=== PATIENT | female | born 1995 | race Caucasian/White ===

== ENCOUNTER 2017-07-13 06:59 | Emergency (ER) | payer MEDICAID, SELFPAY ==
[2017-07-13 07:01] VITALS: BP 144/79; PULSE 122; RESP 18; TEMP 36.9; O2SAT 96; BMI 35.6
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
== END 2017-07-13 07:42 | disposition home or self-care (01) ==
PROVIDERS: Emergency Provider Emergency Medicine; Family Provider Internal Medicine; PCP Internal Medicine
DX: S00.83XA Contusion of other part of head, initial encounter (principal); Y04.2XXA Assault by strike against or bumped into by another person, initial encounter; Y93.89 Activity, other specified; Y92.9 Unspecified place or not applicable
CPT/HCPCS: 99284

== ENCOUNTER → 2017-07-25 14:57 | Outpatient (CLI) | payer MEDICAID, SELFPAY ==
[2017-07-25 21:06] LABS: Chlamydia Trachomatis by PCR Negative (Negative); Neisserai gonorrhoeae by PCR Negative (Negative); Probe Check PASS; Sample Adequacy Control PASS; Specimen Processing Control PASS
== END ==
PROVIDERS: Family Provider Internal Medicine; PCP Internal Medicine; Visit Provider Obstetrics & Gynecology
DX: Z11.3 Encounter for screening for infections with a predominantly sexual mode of transmission (principal); Z32.01 Encounter for pregnancy test, result positive
CPT/HCPCS: 87491; 87591

== ENCOUNTER 2017-08-26 05:54 | Day surgery (SDC) | payer MEDICAID, SELFPAY ==
[2017-08-26] VITALS (8 sets, daily range): BP systolic 95–109; BP diastolic 52–73; PULSE 57–94; RESP 12–16; TEMP 36.2–36.5; O2SAT 95–100; BMI 34.0
[2017-08-26 06:46] LABS: Hematocrit 37.4 % (37-47); Hemoglobin 12.6 g/dl (12.0-15.0); Mean Corp Hgb Conc 33.7 g/gl (32-36); Mean Corpuscular Hgb 27.9 pg (27.0-32.0); Mean Corpuscular Volume 82.7 fL (81-99); Mean Platelet Vol. 9.8 fl (6.2-12.0); Platelet Count 202 K/mm3 (150-450); RBC Distribution Width CV 13.5 % (11.6-14.6); RBC Distribution Width SD 39.8 fl (35.1-43.9); Red Blood Count 4.52 M/mm3 (4.2-5.4); White Blood Count 12.4 K/mm3 (4.4-11.0)
[2017-08-26 06:48] LABS: Scan Indicated on CBC? Y/N NO
[2017-08-26 06:52] LABS: International Normalized Ratio 1.1; Partial Thromboplast Time 32.1 Seconds (24.1-36.2); Prothrombin Time (Protime)PT. 13.9 SECONDS (11.7-14.9)
--- NOTE | 2017-08-26 07:30 | POC_PTH ---
PATIENT: SEAN RUSSELL [place] [facility] [id number] AGE/SX: 21/F ROOM: RE08/26/[address]: Dr. Noe Graves MD : 1995 BED: DIS: 08/26/2017 SPEC #: [id number] RECD: 08/26/17 08:25 STATUS: TOMASZ NIDIA #: [id number] RICKY: 08/26/17 07:[address]: Noe Graves DEPT: SURGICAL PATHOLOGY RECD BY: Tamiko Johnson ENTERED: 08/26/17 09:16 SP TYPE: PROD CONC OTHR DR: Dr. Odette Mendieta MD Tissues: Product of conception, NOS Procedures: Surgery Specimen Level IV HEADER OPERATION: dilation and curettage, suction PRE-OP DIAGNOSIS: Missed TISSUE SUBMITTED: Products of conception MICROSCOPIC DIAGNOSIS Products of conception: Decidua, gestational endometrium and immature chorionic villi (products of conception). SJ:shani 08/27/17 MICROSCOPIC DESCRIPTION Slides are reviewed. GROSS DESCRIPTION Received in fixative is one container labeled with the patient's name and designated products of conception. The specimen consists of multiple fragments of pink hemorrhagic soft tissue that in aggregate measure 6 x 5.5 x 2.5 cm. tissue is not identified. Medical Accounts Receivable Specialist tissue is submitted in two cassettes. / SJ:shani 08/26/17 TC:5 CPT: 06457
[2017-08-26] MEDS: Lubricating Jelly 60 GM Tube 30 GM TOPICAL (07:41)
--- NOTE | 2017-08-26 07:49 | PCM.DC ---
- Discharge Diagnoses Current Active Problems: missed You will use the following diet at home:: No restrictions, Regular Your food should be the consistency of: Regular Discharge Activity: Return to Normal Activity, No Restrictions, May Drive, May not drive while taking narcotic pain medications., May Shower Return to work on:: 09/02/17 May resume sexual activity in: 3 weeks Call your doctor if your incision/area has: Sudden Increased Bleeding, Increased Pain/ Swelling, Increased Redness, Foul Smelling Discharge Call your doctor if you observe: Fever of 101 or Higher, Inability to urinate, Inability to have a bowel movement, Using more than one pad per hour, Shortness of breath, Chest pain, Calf discomfort, Uncontrolled pain Cleanse incision/area with: Soap & Water Allergies/Adverse Reactions: Allergies No Known Allergies Allergy (Verified 08/22/17 10:44) Medications to take at Discharge Ibuprofen [Motrin] 800 mg PO TID PRN PRN #30 tab 08/26/17 Oxycodone [Oxyir] 5 mg PO Q4H PRN PRN 7 Days #14 tab 08/26/17 The following prescriptions were given: Oxycodone [Oxyir] 5 mg PO Q4H PRN PRN 7 Days #14 tab PRN Reason: Severe Pain (6-10/10) Ibuprofen [Motrin] 800 mg PO TID PRN PRN #30 tab PRN Reason: pain or cramping Primary Care Physician: Odette Mendieta MD [Primary Care Provider] - Please Follow Up With: Noe Graves MD When: one week Proposed Discharge Date: 08/26/17
--- NOTE | 2017-08-26 07:54 | OP.PCM_ITS ---
Problem List (1) Missed with demise before 20 completed weeks of gestation Status: Chronic Report of Operation Date of Procedure: 08/26/17 Pre-Operative Diagnosis: Missed Post-Operative Diagnosis: Same Surgery/Procedure Performed:: Suction D and C Description of Surgical Findings:: Uterus 7 weeks size. No cervical lesions. Products of conception appropriate for US findings. cashier self service gasoline: None Type of Anesthesia:: MAC Anesthesiologist: Marcos Mane Special Medications: none Specimen's removed: products of conception Drains: none Estimated Blood Loss (mL): 10cc Fluids Replaced: 500cc LR Description of Procedure: Carola had a missed at approximately 7 weeks EGA. She did not have any bleeding prior to presentation today. She was taken to the OR with IV running. She was given 2 grams of cefotetan intravenously for surgical prophylaxis. MAC anesthesia was introduced without complication. She was then prepped and draped in the dorsal lithotomy position. A red rubber catheter was used to drain the bladder. A weighted speculum was placed in the posterior vagina. The cervix was identified and the anterior lip grasped with a single toothed tenaculum. The cervix was then serially dilated to 8mm without difficulty. A #8 suction curette was then placed into the endometrial cavity, suction applied and products of conception obtained. A sharp curettage was then performed to a gritty texture throughout. The suction curette was reintroduced, suction applied, and the remaining products of conception obtained. All instruments were then removed from the vagina. Bleeding was minimal. She was reversed from anesthesia and taken to the recovery room in stable condition. - Complications none - Admit VTE Documentation VTE Present on Admission: No VTE Mechan Device Prophylaxis: SCD's VTE Pharm Prophylaxis ordered?: No
== END 2017-08-26 09:06 | disposition home or self-care (01) ==
LOC: SDC 05:54 → AC 05:56
PROVIDERS: Family Provider Internal Medicine; PCP Internal Medicine; Visit Provider Obstetrics & Gynecology
PROC: (CPT 59812; principal; 2017-08-26 07:15)
DX: O03.4 Incomplete spontaneous abortion without complication (principal); Z87.891 Personal history of nicotine dependence
CPT/HCPCS: 01965; 59812; 85027; 85610; 85730; 86850; 86900; 88305; J3010; J7120; J2405

== ENCOUNTER → 2017-11-26 14:01 | Outpatient (CLI) | payer MEDICAID, SELFPAY ==
[2017-11-26 18:02] LABS: Chlamydia Trachomatis by PCR Negative (Negative); Neisserai gonorrhoeae by PCR Negative (Negative); Probe Check PASS; Sample Adequacy Control PASS; Specimen Processing Control PASS
[2017-12-03 15:04] LABS: HPV Reflexed? NOT INDICATED
== END ==
PROVIDERS: Visit Provider Obstetrics & Gynecology
DX: Z12.4 Encounter for screening for malignant neoplasm of cervix (principal); Z11.3 Encounter for screening for infections with a predominantly sexual mode of transmission
CPT/HCPCS: 87491; 87591; 88175; G0145

== ENCOUNTER → 2017-12-25 13:56 | Outpatient (CLI) | payer MEDICAID, SELFPAY ==
[2017-12-25 15:45] LABS: Absolute Lymphocyte Count 2.12 X10^3/ul (0.83-4.51); Absolute Neutrophil Count 6.9 X10^3/uL (2.0-7.7); Basophil# 0.01 X10^3/uL; Basophil% 0.1 % (0-1); Eosinophil# 0.24 X10^3/uL; Eosinophils% 2.5 % (0-5); Hematocrit 38.9 % (37-47); Hemoglobin 12.8 g/dl (12.0-15.0); Lymphocyte # 2.12 X10^3/ul (4.0); Lymphocyte % 21.7 % (19-41); Mean Corp Hgb Conc 32.9 g/gl (32-36); Mean Corpuscular Hgb 27.2 pg (27.0-32.0); Mean Corpuscular Volume 82.6 fL (81-99); Monocyte# 0.49 X10^3/uL; Neutrophil # 6.88 X10^3/uL (2.7-7.7); Neutrophil % 70.6 % (47-70); Platelet Count 170 K/mm3 (150-450); RBC Distribution Width CV 14.6 % (11.6-14.6); Red Blood Count 4.71 M/mm3 (4.2-5.4); White Blood Count 9.8 K/mm3 (4.4-11.0)
[2017-12-25 15:46] LABS: POSITIVE COUNT NO; POSITIVE DIFFERENTIAL NO; POSITIVE MORPHOLOGY NO
[2017-12-25 15:49] LABS: Color, Urine Straw (Yellow); Glucose, Dipstick Normal (Normal); Ketone-Dipstick Negative (Negative); Leukocyte Esterase-Dipstick 25 /ul (Negative); Nitrite-Dipstick Negative (Negative); Occult Blood-Urine 10 /ul (Negative); Protein-Dipstick Negative (Negative); Specific Gravity, Urine 1.015 (1.002-1.030); Urine Bilirubin Dipstick Negative (Negative); Urine Clarity Sl. Cloudy (Clear); Urine Urobilinogen 1 mg/dl (Normal)
[2017-12-25 16:05] LABS: Thyroid Stim Hormone (TSH) 0.88 uIU/mL (0.358-3.74)
[2017-12-25 16:13] LABS: COTININE Drug Screen Positive (<200 ng/mL)
[2017-12-25 16:47] LABS: HIV - WCH Non-Reactive (Nonreactive); Rubella IgG 73.4 IU/mL
[2017-12-25 17:39] LABS: Amphetamine Urine VISTA NEGATIVE (<1000 ng/mL); Barbiturate Urine VISTA NEGATIVE (< 200 ng/mL); Benzodiazepine Urine VISTA NEGATIVE (< 200 ng/mL); Cocaine Urine VISTA NEGATIVE (< 300 ng/mL); Ecstacy Urine VISTA NEGATIVE (< 500 ng/mL); Methadone Urine VISTA NEGATIVE (< 300 ng/mL); PCP Urine VISTA NEGATIVE (< 25 ng/mL); THC Urine VISTA NEGATIVE (< 50 ng/mL); Vista UDS pH Range 7
[2017-12-27 02:41] LABS: Prenatal RPR NONREACTIVE (NONREACTIVE)
[2017-12-27 14:10] LABS: HEPATITIS B SURFACE AG Negative (Negative); Hep C Antibodies <0.1 s/co ratio (0.0-0.9)
== END ==
PROVIDERS: Visit Provider Obstetrics & Gynecology
DX: Z34.81 Encounter for supervision of other normal pregnancy, first trimester (principal)
CPT/HCPCS: 36415; 80307; 81002; 84443; 85025; 86703; 86762; 86803; 87340

== ENCOUNTER → 2018-04-16 13:45 | Outpatient (CLI) | payer MEDICAID, SELFPAY ==
[2018-04-16 15:52] LABS: Glucose Challenge Gest 1H 50g 121 mg/dL (70-140)
[2018-04-16 15:56] LABS: Hematocrit 31.8 % (37-47); Hemoglobin 10.5 g/dl (12.0-15.0); Mean Corpuscular Hgb 27.6 pg (27.0-32.0); Mean Corpuscular Volume 83.7 fL (81-99); Mean Platelet Vol. 9.2 fl (6.2-12.0); Platelet Count 187 K/mm3 (150-450); RBC Distribution Width CV 13.8 % (11.6-14.6); RBC Distribution Width SD 41.9 fl (35.1-43.9); White Blood Count 12.2 K/mm3 (4.4-11.0)
[2018-04-16 15:57] LABS: Scan Indicated on CBC? Y/N NO
== END ==
PROVIDERS: Visit Provider Obstetrics & Gynecology
DX: Z34.83 Encounter for supervision of other normal pregnancy, third trimester (principal)
CPT/HCPCS: 36415; 82950; 85027

== ENCOUNTER 2018-05-18 18:25 | Outpatient (CLI) | payer MEDICAID, SELFPAY ==
[2017-08-26 06:33] VITALS: BMI 34.0
[2018-05-18 18:47] VITALS: BMI 37.1
[2018-05-18 19:26] LABS: Mucous, Urine 0 SEEN /hpf (<or=2+); Red Blood Cells-Urine 0 SEEN /hpf (0-5)
[2018-05-18 19:51] LABS: Color, Urine Yellow (Yellow); Glucose, Dipstick Normal (Normal); Ketone-Dipstick Negative (Negative); Leukocyte Esterase-Dipstick 25 /ul (Negative); Nitrite-Dipstick Negative (Negative); Occult Blood-Urine Negative /ul (Negative); Protein-Dipstick Negative (Negative); Urine Bilirubin Dipstick Negative (Negative); Urine Clarity Sl. Cloudy (Clear); Urine Urobilinogen 1 mg/dl (Normal)
[2018-05-18 20:05] LABS: Amorphous Sediment 1+; Bacteria RARE /hpf (None Seen); Squamous Epithelial Cells - UA 0-5 SEEN /hpf (5-10); White Blood Cells 0-5 SEEN /hpf (0-5)
--- NOTE | 2018-05-20 22:42 | OB.TRI.NOTE ---
History of Present Illness Date of Service: 05/18/18 Was patient seen by the physician?: No Reason For Visit: BACK PAIN AND LOWER PRESSURE Date of Service: 05/18/18 Final CHRISTIAN: 07/04/18 Final CHRISTIAN Source: US <20 weeks Gestational age: 33 Weeks and 2 Days History of Present Illness: 22 yo [id number] female at 33 2/7 wk presents with CC of pelvic pain, low back pain. urinary frequency for evaluation. Allergies No Known Allergies Allergy (Verified 08/22/17 10:44) Laboratory Studies: Laboratory Tests 05/18/18 Range/Units 19:00 Urine Color Yellow (Yellow) Urine Clarity Sl. Cloudy (Clear) Urine pH 7.0 (5.0 - 8.0) Ur Specific [place] 1.020 (1.002-1.030) Urine Protein Negative (Negative) mg/dl Urine Glucose (UA) Normal (Normal) mg/dl Urine Ketones Negative (Negative) mg/dl Urine Occult Blood Negative (Negative) /ul Urine Nitrite Negative (Negative) Urine Bilirubin Negative (Negative) mg/dL Urine Urobilinogen 1 H (Normal) mg/dl Ur Leukocyte Esterase 25 H (Negative) /ul Urine RBC 0 SEEN (0-5) /hpf Urine WBC 0-5 SEEN (0-5) /hpf Ur Squamous Epith Cells 0-5 SEEN (5-10) /hpf Amorphous Sediment 1+ Urine Bacteria RARE (None Seen) /hpf Urine Mucus 0 SEEN (<or=2+) /hpf Physical Exam Vitals: UA: Rare bacteria. Sp Gr 1.020 NST - FHR Rate Baby A Baseline: 130-140s avg variability. Accels. Variables. Variability:: Moderate Accelerations:: 10 x 10 Decelerations:: Variable NST Reactive:: Yes, Appropriate for gestational age FHR Category:: Category I Uterine Activity:: Irritability, no regular UCs. Impression/Plan 33 2/7 wk EGA [id number] female. False labor, musculoskeletal pain UA neg for UTI (rare bacteria) Home Tylenol, inc po fluids. Rest, maternity support band prn Benadryl prn to help with rest at night Keep next ofc appt as scheduled.
--- NOTE | 2018-05-20 22:46 | OB.TRI.HP_ITS ---
History of Present Illness Date of Service: 05/18/18 Was patient seen by the physician?: No Reason For Visit: BACK PAIN AND LOWER PRESSURE Date of Service: 05/18/18 Final CHRISTIAN: 07/04/18 Final CHRISTIAN Source: US <20 weeks Gestational age: 33 Weeks and 2 Days History of Present Illness: 22 yo [id number] female at 33 2/7 wk presents with CC of pelvic pain, low back pain. urinary frequency for evaluation. Allergies No Known Allergies Allergy (Verified 08/22/17 10:44) Laboratory Studies: Laboratory Tests 05/18/18 Range/Units 19:00 Urine Color Yellow (Yellow) Urine Clarity Sl. Cloudy (Clear) Urine pH 7.0 (5.0 - 8.0) Ur Specific [place] 1.020 (1.002-1.030) Urine Protein Negative (Negative) mg/dl Urine Glucose (UA) Normal (Normal) mg/dl Urine Ketones Negative (Negative) mg/dl Urine Occult Blood Negative (Negative) /ul Urine Nitrite Negative (Negative) Urine Bilirubin Negative (Negative) mg/dL Urine Urobilinogen 1 H (Normal) mg/dl Ur Leukocyte Esterase 25 H (Negative) /ul Urine RBC 0 SEEN (0-5) /hpf Urine WBC 0-5 SEEN (0-5) /hpf Ur Squamous Epith Cells 0-5 SEEN (5-10) /hpf Amorphous Sediment 1+ Urine Bacteria RARE (None Seen) /hpf Urine Mucus 0 SEEN (<or=2+) /hpf Physical Exam Vitals: UA: Rare bacteria. Sp Gr 1.020 NST - FHR Rate Baby A Baseline: 130-140s avg variability. Accels. Variables. Variability:: Moderate Accelerations:: 10 x 10 Decelerations:: Variable NST Reactive:: Yes, Appropriate for gestational age FHR Category:: Category I Uterine Activity:: Irritability, no regular UCs. Impression/Plan 33 2/7 wk EGA [id number] female. False labor, musculoskeletal pain UA neg for UTI (rare bacteria) Home Tylenol, inc po fluids. Rest, maternity support band prn Benadryl prn to help with rest at night Keep next ofc appt as scheduled.
--- OUTSIDE RECORDS SUMMARY | 2018-07-12 00:46 | XMS RPT_ITS ---
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 shortness of breath, bleeding, nausea or vomiting, chest pain, or any unexpected problems, contact your Primary Care Provider. Call [facility] ([phone]) or report to the closest Emergency Room. Call 911 if necessary. 07/13/17721 <Electronically signed by Joaquin Maldonado DO> Date Joaquin Maldonado DO [place] Signature (If Indicated): Date CC: Odette Mendieta MD ALLERGIES ALLERGIES DATE TYPE / CODE NAME / CODE REACTION SEVERITY SOURCE 08/22/2017 Drug No Known Unknown [facility] Allergy/4160 Allergies/F00 Hospital 12320(SNOMED [id number](RXNOR Repository CT) M) ENCOUNTERS ENCOUNTERS ADMIT/DISCHARGE ACCOUNT ADMITTING ENCOUNTER LOCATION SOURCE NUMBER CLASS 05/18/2018/12/02 [id number] Ambulatory Olmitz Olmitz 8 9 [facility] ing:WPOUTRoom Repository : WP015 04/16/2018 [id number] Ambulatory Debbie Olmitz 0 [facility] ing:WOBLAB Repository 12/25/2017 [id number] Ambulatory Debbie Olmitz 4 [facility] ing:WOBLAB Repository 11/26/2017 [id number] Ambulatory Olmitz Debbie 8 [facility] ing:LABSPEC Repository 08/26/2017/ [id number] Ambulatory Olmitz Olmitz 8 6 [facility] ing:SDC Repository 07/25/2017 [id number] Ambulatory Debbie Debbie 7 [facility] ing:LABSPEC Repository 07/13/2017/ [id number] Emergency Olmitz Debbie 8 4 [facility] ing:ED Repository PAYERS PAYERS ENCOUNTER GUARANTOR PAYER SUBSCRIBER SOURCE 05/18/2018 CAROLA Bautista Primary CAROLA N Olmitz [id number] ERNIE Insurance:CARESOURCEP LAMBDOB: [facility] Number: [id number] [id number] Repository [address]Dle: (330) Date:2018-05-18P O [phone] () [address]ATTN: [place] [address]JG: 05/18/2018 Secondary NOT GIVENUNK Debbie Insurance:SELF PAY [facility] Number: Effective Repository Date:2018-05-18 04/16/2018 Carola Michele Primary Carola N Debbie [id number] Ernie Insurance:CARESOURCEP LambDOB: [facility] Number: [id number] [id number] Repository [address]Asl: (330) Date:2018-04-16 O [phone] () [address]ATTN: [place] [address]JF: 04/16/2018 Secondary NOT GIVENUNK Olmitz Insurance:SELF PAY [facility] Number: Effective Repository Date:2018-04-16 12/25/2017 Carola N Primary Carola N Olmitz [id number] Ernie Insurance:CARESOURCEP [facility]DOB[facility] Number: [id number] [id number] Repository [address]Kyy: (330) Date:2017-12-25P O [phone] () [address]ATTN: [place] [address]HQ: 12/25/2017 Secondary NOT GIVENUNK Olmitz Insurance:SELF PAY [facility] Number: Effective Repository Date:2017-12-25 11/26/2017 Carola N Primary Carola N Debbie [id number] Ernie Insurance:CARESOURCEP LambDOB: [facility] Number: [id number] [id number] Repository [address]Bqk: ([phone]) Date:2017-11-26 O [phone] () [address]ATTN: [place] [address]KC: 11/26/2017 Secondary NOT GIVENUNK Debbie Insurance:SELF PAY [facility] Number: Effective Repository Date:2017-11-26 08/26/2017 Carola N Primary Carola N Olmitz [id number] Ernie Insurance:CARESOURCEP LambDOB: [facility] Number: [id number] [id number] Repository [address]Cmp: ([phone]) Date:2017-08-22P O [phone] () [address]ATTN: [place] [address]NP: 08/26/2017 Secondary NOT GIVENUNK Debbie Insurance:SELF PAY [facility] Number: Effective Repository Date:2017-08-22 07/25/2017 Carola N Primary Carola N Debbie [id number] Ernie Insurance:CARESOURCEP LambDOB: [facility] Number: [id number] [id number] Repository [address]Vow: (330) Date:2017-07-25P O [phone] () [address]ATTN: [place] [address]EV: 07/25/2017 Secondary NOT GIVENUNK Debbie Insurance:SELF PAY [facility] Number: Effective Repository Date:2017-07-25 07/13/2017 Carola N Primary Carola N Olmitz [id number] Ernie Insurance:CARESOURCEP LambDOB: [facility] [address] Number: [id number] [id number] Repository [address]Liv: (330) Date:2017-07-13P O [phone] () [address]ATTN: [place] [address]VW: 07/13/2017 Secondary NOT GIVENUNK Debbie Insurance:SELF PAY [facility] Number: Effective Repository Date:2017-07-13
== END 2018-05-18 20:36 | disposition home or self-care (01) ==
LOC: WPOUT 18:29 → WP 18:30
PROVIDERS: Visit Provider Obstetrics & Gynecology
DX: O47.03 False labor before 37 completed weeks of gestation, third trimester (principal); Z3A.33 33 weeks gestation of pregnancy
CPT/HCPCS: 59025; 59050; 81001; 99218; G0378

== ENCOUNTER → 2018-06-04 15:57 | Outpatient (CLI) | payer MEDICAID, SELFPAY ==
[2018-05-18 18:47] VITALS: BMI 37.1
== END ==
PROVIDERS: Referring Provider Obstetrics & Gynecology; Visit Provider Obstetrics & Gynecology
DX: Z36.85 Encounter for antenatal screening for Streptococcus B (principal)
CPT/HCPCS: 87077; 87081; 87186

== ENCOUNTER 2018-07-02 08:56 | Inpatient (IN) | payer MEDICAID, SELFPAY ==
[2018-07-02] VITALS (17 sets, daily range): BP systolic 97–132; BP diastolic 29–83; PULSE 55–87; RESP 12–18; TEMP 36–36.8; O2SAT 96–100; BMI 38.5
[2018-07-02] MEDS: Lactated Ringers 1,000 ML 999 ML IV (10:20)
[2018-07-02 10:23] LABS: Absolute Lymphocyte Count 2.42 X10^3/ul (0.83-4.51); Absolute Neutrophil Count 8.5 X10^3/uL (2.0-7.7); Basophil# 0.01 X10^3/uL; Basophil% 0.1 % (0-1); Eosinophil# 0.16 X10^3/uL; Eosinophils% 1.4 % (0-5); Hematocrit 31.1 % (37-47); Hemoglobin 9.8 g/dl (12.0-15.0); Lymphocyte # 2.42 X10^3/ul (4.0); Lymphocyte % 20.5 % (19-41); Mean Corp Hgb Conc 31.5 g/gl (32-36); Mean Corpuscular Hgb 25.5 pg (27.0-32.0); Mean Platelet Vol. 8.2 fl (6.2-12.0); Monocyte# 0.69 X10^3/uL; Monocyte% 5.9 % (0-10); Neutrophil # 8.48 X10^3/uL (2.7-7.7); Neutrophil % 71.8 % (47-70); POSITIVE COUNT NO; POSITIVE DIFFERENTIAL NO; POSITIVE MORPHOLOGY NO; Platelet Count 196 K/mm3 (150-450); RBC Distribution Width CV 15.3 % (11.6-14.6); RBC Distribution Width SD 44.1 fl (35.1-43.9); Red Blood Count 3.84 M/mm3 (4.2-5.4); White Blood Count 11.8 K/mm3 (4.4-11.0)
[2018-07-02 10:47] LABS: Partial Thromboplast Time 29.1 Seconds (24.1-36.2); Prothrombin Time (Protime)PT. 13.1 SECONDS (11.7-14.9)
[2018-07-02] MEDS: Lactated Ringers 1,000 ML 150 ML IV (11:23)
[2018-07-02] MEDS: Sodium Citrate/Citric Acid 30 ML UDC PO (11:48)
[2018-07-02] MEDS: Cefazolin 2 GM in 0.9% Normal Saline 100 ML IV (11:57)
[2018-07-02] MEDS: Oxytocin 30 units/NS 500 ml 30 UNITS/500 ML IV.SOLN 167 UNITS IV (12:26)
--- NOTE | 2018-07-02 12:35 | PLAC_PTH ---
PATIENT: SEAN RUSSELL LOC: [facility] U#:[id number] AGE/SX: 22/F ROOM: WP010 RE07/02/[address]: Dr. Noe Graves MD : 1995 BED: 1 DIS: 07/04/2018 SPEC #: [id number] RECD: 07/02/18 14:41 STATUS: TOMASZ REAdrian #: [id number] RICKY: 07/02/18 12:[address]: Noe Graves DEPT: SURGICAL PATHOLOGY RECD BY: Jamie Tracy ENTERED: 07/03/18 12:03 SP TYPE: PLACENTA OTHR DR: Dr. Odette Mendieta MD Tissues: Placenta, NOS Procedures: Surgery Specimen Level V HEADER OPERATION: Repeat section PRE-OP DIAGNOSIS: Meconium TISSUE SUBMITTED: Placenta MICROSCOPIC DIAGNOSIS Barragan placenta (530 gm): Umbilical cord - trivascular with early acute funisitis. Placental membranes - mild acute chorioamnionitis and mild acute deciduitis. Placental disc - organizing intraparenchymal hemorrhage, Justin-Arie change, increased intraparenchymal fibrin plaques and intervillous congestion. AM:shani 07/04/18 MICROSCOPIC DESCRIPTION Slides are reviewed. GROSS DESCRIPTION SPECIMEN: PLACENTA / CLINICAL INFORMATION: A. Weight: 2.95 kg B. Gestational Age: 39 weeks C. Sex: Male PLACENTAL WEIGHT (POST FIXATION): 530 gm PLACENTAL DIMENSIONS: 19 x 16 x 4 cm PLACENTAL SHAPE: Usual ovoid PLACENTAL WEIGHT FOR GESTATIONAL AGE: Within 10-99th percentile MEMBRANES - Present A. Insertion: Marginal B. Site of rupture from edge: At edge of placental disc C. Color of membrane: Sunshine-greenish, mucoidy consistent with meconium staining D. Abnormalities: None UMBILICAL CORD - Present A. Color: Sunshine-mcdonough B. Insertion: Central C. Length: 33 cm D. Diameter: 1 cm E. Number of vessels: Three F. Abnormalities: None PLACENTAL DISC - Present A. Color of surface: Sunshine-mcdonough B. surface abnormalities: None C. Maternal cotyledons: Intact with minimal tears. Multiple blood clots are noted on the maternal surface weighing in aggregate 62 gm and measuring in aggregate 7 x 7 x 3 cm. D. Attached retro placental clot: No clot E. Cut surface: Dark red and spongy F. Lesions: Sections reveal a sunshine, indurated area measuring 1.5 cm in greatest dimension. G. Separate clot: Absent SECTIONS SUBMITTED: 1. Membrane roll 2. Cord, maternal end 3. Cord, end 4. Placental disc, and maternal surfaces, lesion 5. Placental disc, and maternal surfaces 6. Placental disc, and maternal surfaces CHERISE:shani 07/03/18 TC:2 CPT: 04778
--- NOTE | 2018-07-02 12:56 | PCM.OB.CSR ---
Delivery Classification: Scheduled Final CHRISTIAN: 07/04/18 Final CHRISTIAN Source: US <20 weeks Gestational age: 39 Weeks and 5 Days Indications for : Repeat Elective Description of Procedure: Normal appearing uterus, ovaries, and fallopian tubes, minimal scarring from previous C/S. Delivery of live male weighing 6lb8oz. APGARs 8/9. Meconium stained amniotic fluid present. True knot in the cord about 10cm from umbilicus. Amniotic Membrane Rupture Type: Artificial Amniotic Fluid Description: Moderate meconium Placenta Disposition: Sent to Pathology Specimen(s) sent to pathology: placenta Drain: Ferguson to straight drain Fluids Replaced: 1500cc Cord Entanglement: True Knot(s) - x 1 Nuchal Cord Compression: Without compression Cord Vessel Description: 3 Vessels Esitmated Blood Loss (ml): 400cc Gender: Male (1 minute): 8 (5 minute): 9 Pre-op Antibiotic Given: Ancef 2 grams IV x1 Pt instructed on risks of surgery: Bleeding, Infection, Need for Future C-Sections, Injury to surrounding structure(s) including bowel and bladder Complications: None - Admit VTE Documentation VTE Present on Admission: No VTE Mechan Device Prophylaxis: SCD's VTE Pharm Prophylaxis ordered?: No
--- NOTE | 2018-07-02 12:59 | OP.PCM_ITS ---
Delivery Classification: Scheduled Final CHRISTIAN: 07/04/18 Final CHRISTIAN Source: US <20 weeks Gestational age: 39 Weeks and 5 Days Indications for : Repeat Elective Description of Procedure: Normal appearing uterus, ovaries, and fallopian tubes, minimal scarring from previous C/S. Delivery of live male weighing 6lb8oz. APGARs 8/9. Meconium stained amniotic fluid present. True knot in the cord about 10cm from umbilicus. Amniotic Membrane Rupture Type: Artificial Amniotic Fluid Description: Moderate meconium Placenta Disposition: Sent to Pathology Specimen(s) sent to pathology: placenta Drain: Ferguson to straight drain Fluids Replaced: 1500cc Cord Entanglement: True Knot(s) - x 1 Nuchal Cord Compression: Without compression Cord Vessel Description: 3 Vessels Esitmated Blood Loss (ml): 400cc Gender: Male (1 minute): 8 (5 minute): 9 Pre-op Antibiotic Given: Ancef 2 grams IV x1 Pt instructed on risks of surgery: Bleeding, Infection, Need for Future C- Sections, Injury to surrounding structure(s) including bowel and bladder Complications: None - Admit VTE Documentation VTE Present on Admission: No VTE Mechan Device Prophylaxis: SCD's VTE Pharm Prophylaxis ordered?: No
--- NOTE | 2018-07-02 13:14 | DCINST_ITS ---
Discharge Diet: No Restrictions Discharge Activity: Return to Normal Activity, May Not Drive, May not drive while taking narcotic pain medications., May Shower Return to work on:: 09/01/18 May resume sexual activity in: 4-6 weeks Call your doctor if your incision/area has: Sudden Increased Bleeding, Increased Pain/ Swelling, Increased Redness, Foul Smelling Discharge, Swelling at the incision site Call your doctor if you observe: Fever of 101 or Higher, Inability to urinate, Inability to have a bowel movement, Using more than one pad per hour, Shortness of breath, Chest pain, Calf discomfort, Uncontrolled pain Remove Dressing in (days):: 3 Cleanse incision/area with: Soap & Water Additional Instructions: If you experience any of the following, contact your healthcare provider. * Bleeding that soaks a pad every hour for 2 hours * Fever 100.4 or higher * Unrelieved incision or abdominal pain * Swelling, redness, discharge or bleeding from your incision or episiotomy site * Your incision begins to separate * Problems urinating (including inability to urinate or burning while urinating). * Visual changes * Severe headache * Flu-like symptoms * Pain or redness in one of both of your breasts * Pain, warmth, tenderness or swelling in your legs, especially the calf area * Frequent nausea and vomiting * Symptoms of depression or anxiety If you experience any of the following, call 911 or go to the nearest Emergency Room. * Chest pain * Problems breathing * Seizure activity * Partial or complete paralysis of a body part, slurred speech, weakness or drooping of the face, or a sudden inability to walk or hold your balance Allergies/Adverse Reactions: Allergies No Known Allergies Allergy (Verified 08/22/17 10:44) Medications to take at Discharge Acetaminophen/Butalbital/Caffe [Fioricet] 2 tablet PO Q4H PRN PRN 05/18/18 Ferrous Sulfate [Iron] 325 mg PO BID 05/18/18 Vits [Prenatabs FA] 1 tablet PO DAILY 05/18/18 Ibuprofen 600 mg PO 4X/DAY #30 tab 07/02/18 Oxycodone [Oxyir] 5 - 10 mg PO Q4H PRN PRN 7 Days #28 tab 07/02/18 Zofran 4 mg PO Q6H PRN PRN 07/02/18 The following prescriptions were given: Oxycodone [Oxyir] 5 - 10 mg PO Q4H PRN PRN 7 Days #28 tab PRN Reason: Mod-Severe Pain (4-03/26) Ibuprofen 600 mg PO 4X/DAY #30 tab Follow-Up: Call to make an appointment with your doctor for an incision check in 1-2 weeks. You will also need a 6 week post- follow up appointment. Test results from this visit will be discussed in further detail at your follow- up appointment, if applicable. Please Follow Up With: Noe Graves MD When: one week Primary Care Physician: Odette Mendieta MD [Primary Care Provider] - Proposed Discharge Date: 07/04/18
--- NOTE | 2018-07-02 13:14 | PCM.OPRPT ---
Problem List (1) Previous delivery affecting Status: Chronic Report of Operation Date of Procedure: 07/02/18 Pre-Operative Diagnosis: Previous Section at 39w5d EGA Post-Operative Diagnosis: Same Surgery/Procedure Performed:: Repeat Low Transverse Section Description of Surgical Findings:: Normal appearing uterus, ovaries, and fallopian tubes. Minimal scarring present. Delivery of a live male with APGARs of 8/9. weight 6lb8oz. Amniotic fluid with moderate meconium present. True know in the umbilical cord about 10 cm from umbilicus. field specialist: Sue Cruz Type of Anesthesia:: Spinal Anesthesiologist: Enoch Wheeler Special Medications: none Specimen's removed: Placenta Drains: Silvestre Estimated Blood Loss (mL): 400cc Fluids Replaced: 1500cc Description of Procedure: Procedures, indications, and risks of the repeat section were reviewed with Carola prior to the procedure. She was taken to the OR with IV running. She was given two grams of Ancef intravenously prior to the procedure for prophylaxis. Spinal anesthesia was introduced without complication. She was then prepped and draped in the supine position with a leftward tilt. A silvestre catheter was placed. Once anesthesia was deemed adequate a Pfannensteil skin incision was made through the previous lower abdominal scar. The underlying subcutaneous tissue was dissected down to the level of fascia with sharp and blunt dissection. The fascia was then incised in the midline and this defect was extended bilaterally with the Jeffries scissors. The upper portion of the fascial defect was then grasped with two Melita clamps, elevated and the rectus muscles dissected off with sharp and blunt dissection. In a similar fashion the fascia was dissected off the lower fascial defect. The rectus muscles were in the midline, the peritoneum identified and entered sharply. The peritoneal defect was then enlarged with sharp and blunt retraction. A bladder blade was placed. A bladder flap was then created. The bladder blade replaced. The lower uterine incision was then incised in a transverse fashion. Once the cavity was entered the uterine defect was enlarged using blunt lateral and superior traction. The baby's head and body were then delivered atraumatically. There was noted to be a cord around the body x 1. There was an active cry almost immediately after delivery. The moth and nares were suctioned with a bulb suction. The baby was dried. Delayed cord clamping was employed. The cord was then clamped and cut. The baby was then handed off to the waiting nurse for evaluation. The placenta was then delivered manually, the uterus exteriorized, and the cavity cleared of all clot and membranes. The uterine incision was then repaired in two layers with #1 Vicryl suture. Two figure of eight sutures were required to affect excellent hemostasis. The posterior cul de sac and gutters were cleared of all clot and fluid. The uterus was returned to the abdomen. The uterine incision was reinspected and found to be hemostatic. Leo was used over the uterine incision. The peritoneum was then closed with a running stitch of 2-0 Vicryl. The rectus muscles were reapproximated with interrupted sutures of 0-Vicryl suture. The fascia was closed with a running stitch of #1 Stratofix suture. The subcutaneous tissue was closed with a running stitch of 2-0 Vicryl. The skin was closed with a subcuticular stitch of 4-0 Monocryl. Sponge, lap, needle and instrument counts were correct. She was taken to her recovery room in stable condition. Grafts/Implants Used: Leo to lower uterine segment and subcutaneous tissue - Complications none - Admit VTE Documentation VTE Present on Admission: No VTE Mechan Device Prophylaxis: SCD's VTE Pharm Prophylaxis ordered?: No
[2018-07-02] MEDS: Ferrous Sulfate 325 MG Tablet PO (18:04)
[2018-07-02] MEDS: Ketorolac 30 MG/ML Syringe IV (18:04)
[2018-07-02] MEDS: Lactated Ringers 1,000 ML 100 ML IV (18:05)
[2018-07-02] MEDS: Cefazolin 1 GM/50 ML BAG IV (20:00)
[2018-07-03] VITALS (10 sets, daily range): BP systolic 111–135; BP diastolic 50–74; PULSE 73–101; RESP 16–18; TEMP 36.3–36.7; O2SAT 96–98
[2018-07-03] MEDS: Cefazolin 1 GM/50 ML BAG IV (04:02)
[2018-07-03] MEDS: Lactated Ringers 1,000 ML 100 ML IV (04:06)
[2018-07-03 05:16] LABS: Hematocrit 29.5 % (37-47); Hemoglobin 9.2 g/dl (12.0-15.0); Mean Corp Hgb Conc 31.2 g/gl (32-36); Mean Corpuscular Hgb 25.6 pg (27.0-32.0); Mean Corpuscular Volume 81.9 fL (81-99); Mean Platelet Vol. 8.5 fl (6.2-12.0); Platelet Count 244 K/mm3 (150-450); RBC Distribution Width CV 15.3 % (11.6-14.6); RBC Distribution Width SD 43.7 fl (35.1-43.9); White Blood Count 13.7 K/mm3 (4.4-11.0)
[2018-07-03 05:22] LABS: Scan Indicated on CBC? Y/N NO
[2018-07-03] MEDS: Ketorolac 30 MG/ML Syringe IV ×5 (05:50→23:57)
[2018-07-03] MEDS: 0.9% Saline Lock 10 ML Syringe IV ×5 (05:50→23:58)
--- NOTE | 2018-07-03 08:05 | PCM.PN.OB ---
Subjective: No specific complaints. Pain well controlled. Objective: Afeb VSS. Urine output adequate. Hgb stable - Physical Exam General: Alert, Oriented x3, Cooperative, No apparent distress Lungs: Clear to auscultation, Normal air movement Cardiovascular: Regular rate, Regular Rhythm Abdomen: Soft, Non Tender, Non-Distended, - - Incision dressing dry Extremities: No edema Skin: No rashes Neurological: Neuro grossly intact Psych/Mental Status: Normal Affect Comment: Lochia light Vital Signs Temp Pulse Resp BP Pulse Ox 98.1 F 91 16 116/60 96 07/03/18 04:05 07/03/18 05:50 07/03/18 05:50 07/03/18 04:05 07/03/18 05:50 Oxygen Delivery Method Room Air Weight: 217 lb 2.485 oz Body Mass Index (BMI) 38.5 Intake and Output for Last 24 Hours 07/01/18 07/02/18 07/03/18 23:59 23:59 23:59 Intake Total 3026 / 3026 Output Total 825 / 825 1100 / 1100 Balance 2201 / 2201 -1100 / -1100 Laboratory Tests Past 24 Hrs 07/02/18 07/02/18 07/02/18 10:00 10:00 10:00 WBC 11.8 H RBC 3.84 L Hgb 9.8 L Hct 31.1 L MCV 81.0 MCH 25.5 L MCHC 31.5 L RDW 15.3 H RDW Differential 44.1 H Plt Count 196 MPV 8.2 Immature Gran % (Auto) 0.300 Neut % (Auto) 71.8 H Lymph % (Auto) 20.5 [place] % (Auto) 5.9 Eos % (Auto) 1.4 Baso % (Auto) 0.1 Absolute Neuts (auto) 8.5 H Absolute Lymphs (auto) 2.42 Total Counted Not Reportable PT 13.1 INR 1.0 APTT 29.1 Blood Type B POSITIVE Antibody Screen NEGATIVE 07/03/18 04:55 WBC 13.7 H RBC 3.60 L Hgb 9.2 L Hct 29.5 L MCV 81.9 MCH 25.6 L MCHC 31.2 L RDW 15.3 H RDW Differential 43.7 Plt Count 244 MPV 8.5 Immature Gran % (Auto) Neut % (Auto) Lymph % (Auto) [place] % (Auto) Eos % (Auto) Baso % (Auto) Absolute Neuts (auto) Absolute Lymphs (auto) Total Counted PT INR APTT Blood Type Antibody Screen Medical Necessity - Tobacco Use Smoking Status: Never smoker Assessment/Plan Doing well on POD#1. Continue routine PO care.
[2018-07-03] MEDS: Ferrous Sulfate 325 MG Tablet PO ×2 (09:58→17:44)
[2018-07-03] MEDS: Senna/Docusate Sodium 1 Tablet PO (11:23)
[2018-07-03] MEDS: Prenatal Vits Tablet 1 TABLET PO (11:23)
[2018-07-03] MEDS: oxyCODONE 5 MG Tablet PO ×2 (13:44→19:54)
[2018-07-03] MEDS: Acetaminophen 500 MG Tablet 1000 MG PO (17:45)
[2018-07-04 02:38] VITALS: BP 115/81; PULSE 76; RESP 18; TEMP 36.5
[2018-07-04] MEDS: oxyCODONE 5 MG Tablet PO (04:03)
[2018-07-04] MEDS: Ketorolac 30 MG/ML Syringe IV ×2 (06:00→12:13)
[2018-07-04] MEDS: 0.9% Saline Lock 10 ML Syringe IV ×2 (06:01→12:12)
[2018-07-04 08:00] VITALS: BP 120/62; PULSE 78; RESP 17; TEMP 36.6; O2SAT 98
--- NOTE | 2018-07-04 08:03 | PCM.PN.OB ---
Subjective: No complaints. She is sore, but pain manageable. Tolerates a regular diet and passing flatus. No bowel movement yet. Bottlefeeding. Desires discharge to home today. Objective: AVSS - Physical Exam General: Alert, Oriented x3, Cooperative, No apparent distress HEENT: Atraumatic, Normocephalic Lungs: Clear to auscultation, Normal air movement Cardiovascular: Regular rate, Regular Rhythm, Normal S1, Normal S2 Abdomen: Bowel Sounds Present, Soft, Non Tender, Non-Distended, - - Incisional dressing c/d/i, fundus firm and nontender Extremities: No edema, No Calf Tenderness Neurological: Neuro grossly intact Psych/Mental Status: Normal Affect, Appropriate, Alert and oriented to time, place, person, mood and affect Vital Signs Temp Pulse Resp BP Pulse Ox 97.7 F L 76 18 115/81 H 98 07/04/18 02:38 07/04/18 02:38 07/04/18 02:38 07/04/18 02:38 07/03/18 12:30 Oxygen Delivery Method Room Air Weight: 98.5 kg Body Mass Index (BMI) 38.5 Intake and Output for Last 24 Hours 07/02/18 07/03/18 07/04/18 23:59 23:59 23:59 Intake Total 3026 / 3026 400 / 400 Output Total 825 / 825 2600 / 2600 Balance 2201 / 2201 -2200 / -2200 Medical Necessity - Tobacco Use Smoking Status: Never smoker Assessment/Plan 22yo P3 POD#2 s/p RLTCS Doing well. -Rh positive -Bottlefeeding -d/c home today
[2018-07-04] MEDS: Acetaminophen 500 MG Tablet 1000 MG PO (08:26)
[2018-07-04] MEDS: Ferrous Sulfate 325 MG Tablet PO (11:08)
[2018-07-04] MEDS: Prenatal Vits Tablet 1 TABLET PO (11:09)
[2018-07-04 12:00] VITALS: BP 126/70; PULSE 78; RESP 17; TEMP 36.7; O2SAT 98
[2018-07-04 15:37] LABS: Pathology Specimen OB SEE PATHOLOGY REPORT
--- NOTE | 2018-07-14 11:50 | NURSING ---
Voicemail full and unable to leave a message. Pilar RN IBCLC
--- OUTSIDE RECORDS SUMMARY | 2018-09-06 00:27 | XMS RPT_ITS ---
:1995 Author Organization OHIP Support Name Relationship Address Phone MARIAH, OLIVIA Unavailable [address] [place] [address] UE Unavailable Unavailable Unavailable MARIAH, OLIVIA Unavailable [address] [place] [address] UE Unavailable Unavailable Unavailable MARIAH, OLIVIA Unavailable [address] + [place] [address] UE Unavailable Unavailable Unavailable MARIAH, OLIVIA Unavailable [address] + [place] [address] UE Unavailable Unavailable Unavailable MARIAH, OLIVIA Unavailable [address] + [place] [address] UE Unavailable Unavailable Unavailable MARIAH, OLIVIA Unavailable [address] + [place] [address] UE Unavailable Unavailable Unavailable MARIAH, OLIVIA Unavailable [address] + [place] [address] UE Unavailable Unavailable Unavailable MARIAH, OLIVIA Unavailable [address] + [place] [address] UE Unavailable Unavailable Unavailable MARIAH, OLIVIA Unavailable [address] + [place] [address] UE Unavailable Unavailable Unavailable MARIAH, OLIVIA Unavailable [address] + [place] [address] UE Unavailable Unavailable Unavailable Care Team Providers Name Role Phone Noe Graves Attending Unavailable Seals, Noe Referring Unavailable Seals, Noe Admitting Unavailable Seals, Noe Attending Unavailable Seals, Noe Referring Unavailable Ganta, Odette Primary Care Unavailable Ely, Noe Admitting Unavailable Seals, Noe Attending Unavailable Seals, Noe Referring Unavailable Ganta, Odette Primary Care Unavailable Ganta, Odette Primary Care Unavailable Ungur, Remus Attending Unavailable Seals, Noe Attending Unavailable Ganta, Odette Primary Care Unavailable Seals, Noe Attending Unavailable Seals, Noe Referring Unavailable Ganta, Odette Primary Care Unavailable Seals, Noe Attending Unavailable Seals, Noe Attending Unavailable Seals, Noe Attending Unavailable Benekos, Naila Attending Unavailable PROBLEMS PROBLEMS DATE TYPE CONDITION / CODE ATTENDING STATUS SOURCE 07/04/2018 Unknown G89.18 - Other acute Seals, Noe Active [facility] post[facility]ced[facility] pain [facility] / G89.18(ICD-10) Hospital Repository 06/04/2018 Unknown Z36.85 - Encounter Seals, Noe Active [facility] for [facility] screening for Hospital Streptococcus B / Repository Z36.85(ICD-10) 04/16/2018 Unknown Z34.83 - Encounter Seals, Noe Active [facility] for supervision of Community other normal Hospital , third Repository trimester / Z34.83(ICD-10) 12/25/2017 Unknown Z34.81 - Encounter Seals, Noe Active [place] for supervision of Community other normal Hospital , first Repository trimester / Z34.81(ICD-10) 11/26/2017 Unknown Z12.4 - Encounter Seals, Noe Active [place] for screening for Community malignant neoplasm [facility] cervix / Repository Z12.4(ICD-10) 11/26/2017 Unknown Z11.3 - Encounter Seals, Noe Active [place] for screening for Community infections with a Hospital predominantly sexual Repository mode of transmission / Z11.3(ICD-10) PROCEDURES PROCEDURES No Procedure Records FoundRESULTS RESULTS CBC-COMPLETE BLOOD CNT Collected: 07/03/2018 Status: F Source: [place] NO DIFF 4:55 AM [facility] REPOSITORY Order Comment: Comments: Day #1 Reason for Laboratory Test TYPE CODE TESTS RESULT OUT OF RANGE REFERENCE UNITS LAB L100.1000 4.4-11.0 K/mm3 High WBC 13.7 LAB L100.1200 4.2-5.4 M/mm3 Low RBC 3.60 LAB L100.1300 12.0-15.0 g/dl Low HGB 9.2 LAB L100.1400 37-47 % Low HCT 29.5 LAB L100.1500 81-99 fL Normal MCV 81.9 LAB L100.1600 27.0-32.0 pg Low MCH 25.6 LAB L100.1700 32-36 g/gl Low MCHC 31.2 LAB L100.1810 11.6-14.6 % High RDW CV 15.3 LAB L100.1820 35.1-43.9 fl Normal RDW SD 43.7 LAB L100.1900 150-450 K/mm3 Normal PLT 244 LAB L100.2000 6.2-12.0 fl Normal MPV 8.5 Performed By: #### L100.0500 #### [facility] [address] [place], [address] OPERATIVE REPORT Observed: 07/02/2018 Status: F Source: [place] 2:47 PM [facility] REPOSITORY [facility] Medical Records Department [address] [place] [address] Operative Report 07/02/18 1314 MR#: [id number] Acct: [id number] Name: CAROLA RUSSELL Rep #: [id number] : 1995 22 From: Noe Graves MD PCP: Odette Mendieta MD Status: ADM IN Location: [place] [id number] Problem List (1) Previous delivery affecting Status: Chronic Report of Operation Date of Procedure: 07/02/18 Pre-Operative Diagnosis: Previous Section at 39w5d EGA Post-Operative Diagnosis: Same Surgery/Procedure Performed:: Repeat Low Transverse Section Description of Surgical Findings:: Normal appearing uterus, ovaries, and fallopian tubes. Minimal scarring present. Delivery of a live male with APGARs of 8/9. weight 6lb8oz. Amniotic fluid with moderate meconium present. True know in the umbilical cord about 10 cm from umbilicus. crystallography teacher: Sue Cruz Type of Anesthesia:: Spinal Anesthesiologist: Enoch Wheeler Special Medications: none Specimen's removed: Placenta Drains: Silvestre Estimated Blood Loss (mL): 400cc Fluids Replaced: 1500cc Description of Procedure: Procedures, indications, and risks of the repeat section were reviewed with Carola prior to the procedure. She was taken to the OR with IV running. She was given two grams of Ancef intravenously prior to the procedure for prophylaxis. Spinal anesthesia was introduced without complication. She was then prepped and draped in the supine position with a leftward tilt. A silvestre catheter was placed. Once anesthesia was deemed adequate a Pfannensteil skin incision was made through the previous lower abdominal scar. The underlying subcutaneous tissue was dissected down to the level of fascia with sharp and blunt dissection. The fascia was then incised in the midline and this defect was extended bilaterally with the Jeffries scissors. The upper portion of the fascial defect was then grasped with two Melita clamps, elevated and the rectus muscles dissected off with sharp and blunt dissection. In a similar fashion the fascia was dissected off the lower fascial defect. The rectus muscles were in the midline, the peritoneum identified and entered sharply. The peritoneal defect was then enlarged with sharp and blunt retraction. A bladder blade was placed. A bladder flap was then created. The bladder blade replaced. The lower uterine incision was then incised in a transverse fashion. Once the cavity was entered the uterine defect was enlarged using blunt lateral and superior traction. The baby's head and body were then delivered atraumatically. There was noted to be a cord around the body x 1. There was an active cry almost immediately after delivery. The moth and nares were suctioned with a bulb suction. The baby was dried. Delayed cord clamping was employed. The cord was then clamped and cut. The baby was then handed off to the waiting nurse for evaluation. The placenta was then delivered manually, the uterus exteriorized, and the cavity cleared of all clot and membranes. The uterine incision was then repaired in two layers with #1 Vicryl suture. Two figure of eight sutures were required to affect excellent hemostasis. The posterior cul de sac and gutters were cleared of all clot and fluid. The uterus was returned to the abdomen. The uterine incision was reinspected and found to be hemostatic. Leo was used over the uterine incision. The peritoneum was then closed with a running stitch of 2-0 Vicryl. The rectus muscles were reapproximated with interrupted sutures of 0- Vicryl suture. The fascia was closed with a running stitch of #1 Stratofix suture. The subcutaneous tissue was closed with a running stitch of 2-0 Vicryl. The skin was closed with a subcuticular stitch of 4-0 Monocryl. Sponge, lap, needle and instrument counts were correct. She was taken to her recovery room in stable condition. Grafts/Implants Used: Leo to lower uterine segment and subcutaneous tissue - Complications none - Admit VTE Documentation VTE Present on Admission: No VTE Mechan Device Prophylaxis: SCD's VTE Pharm Prophylaxis ordered?: No 07/02/18 1447 <Electronically signed by Noe Graves MD> Date Noe Graves MD CC: Odette Mendieta MD; Noe Graves MD Signed DISCHARGE INSTRUCTION Observed: 07/02/2018 Status: F Source: [place] 1:14 PM [facility] REPOSITORY [facility] Medical Records Department [address] [place] [address] Instructions for Home/Discharge Instructions 07/02/18 1313 MR#: [id number] Acct: [id number] Name: CAROLA RUSSELL Rep #: [id number] : 1995 22 From: Noe Graves MD PCP: Odette Mendieta MD Status: ADM IN Discharge Diet: No Restrictions Discharge Activity: Return to Normal Activity, May Not Drive, May not drive while taking narcotic pain medications., May Shower Return to work on:: 09/01/18 May resume sexual activity in: 4-6 weeks Call your doctor if your incision/area has: Sudden Increased Bleeding, Increased Pain/ Swelling, Increased Redness, Foul Smelling Discharge, Swelling at the incision site Call your doctor if you observe: Fever of 101 or Higher, Inability to urinate, Inability to have a bowel movement, Using more than one pad per hour, Shortness of breath, Chest pain, Calf discomfort, Uncontrolled pain Remove Dressing in (days):: 3 Cleanse incision/area with: Soap AND Water Additional Instructions: If you experience any of the following, contact your healthcare provider. * Bleeding that soaks a pad every hour for 2 hours * Fever 100.4 or higher * Unrelieved incision or abdominal pain * Swelling, redness, discharge or bleeding from your incision or episiotomy site * Your incision begins to separate * Problems urinating (including inability to urinate or burning while urinating). * Visual changes * Severe headache * Flu-like symptoms * Pain or redness in one of both of your breasts * Pain, warmth, tenderness or swelling in your legs, especially the calf area * Frequent nausea and vomiting * Symptoms of depression or anxiety If you experience any of the following, call 911 or go to the nearest Emergency Room. * Chest pain * Problems breathing * Seizure activity * Partial or complete paralysis of a body part, slurred speech, weakness or drooping of the face, or a sudden inability to walk or hold your balance Allergies/Adverse Reactions: Allergies No Known Allergies Allergy (Verified 08/22/17 10:44) Medications to take at Discharge Acetaminophen/Butalbital/Caffe [Fioricet] 2 tablet PO Q4H PRN PRN 05/18/18 Ferrous Sulfate [Iron] 325 mg PO BID 05/18/18 Vits [Prenatabs FA] 1 tablet PO DAILY 05/18/18 Ibuprofen 600 mg PO 4X/DAY #30 tab 07/02/18 Oxycodone [Oxyir] 5 - 10 mg PO Q4H PRN PRN 7 Days #28 tab 07/02/18 Zofran 4 mg PO Q6H PRN PRN 07/02/18 The following prescriptions were given: Oxycodone [Oxyir] 5 - 10 mg PO Q4H PRN PRN 7 Days #28 tab PRN Reason: Mod-Severe Pain (4-10/10) Ibuprofen 600 mg PO 4X/DAY #30 tab Follow-Up: Call to make an appointment with your doctor for an incision check in 1-2 weeks. You will also need a 6 week post- follow up appointment. Test results from this visit will be discussed in further detail at your follow-up appointment, if applicable. Please Follow Up With: Noe Graves MD When: one week Primary Care Physician: Odette Mendieta MD [Primary Care Provider] - Proposed Discharge Date: 07/04/18 07/02/18 1314 <Electronically signed by Noe Graves MD> Date Noe Graves MD CC: Odette Mendieta MD Signed OPERATIVE REPORT Observed: 07/02/2018 Status: F Source: [place] 12:59 PM [facility] REPOSITORY [facility] Medical Records Department [address] [place] [address] Operative Report 07/02/18 1256 MR#: [id number] Acct: [id number] Name: CAROLA RUSSELL Rep #: [id number] : 1995 22 From: Noe Graves MD PCP: Odette Mendieta MD Status: ADM IN Y Location: [place] [address] Delivery Classification: Scheduled Final CHRISTIAN: 07/04/18 Final CHRISTIAN Source: US <20 weeks Gestational age: 39 Weeks and 5 Days Indications for : Repeat Elective Description of Procedure: Normal appearing uterus, ovaries, and fallopian tubes, minimal scarring from previous C/S. Delivery of live male weighing 6lb8oz. APGARs 8/9. Meconium stained amniotic fluid present. True knot in the cord about 10cm from umbilicus. Amniotic Membrane Rupture Type: Artificial Amniotic Fluid Description: Moderate meconium Placenta Disposition: Sent to Pathology Specimen(s) sent to pathology: placenta Drain: Silvestre to straight drain Fluids Replaced: 1500cc Cord Entanglement: True Knot(s) - x 1 Nuchal Cord Compression: Without compression Cord Vessel Description: 3 Vessels Esitmated Blood Loss (ml): 400cc Infant Gender: Male (1 minute): 8 (5 minute): 9 Pre-op Antibiotic Given: Ancef 2 grams IV x1 Pt instructed on risks of surgery: Bleeding, Infection, Need for Future C-Sections, Injury to surrounding structure(s) including bowel and bladder Complications: None - Admit VTE Documentation VTE Present on Admission: No VTE Mechan Device Prophylaxis: SCD's VTE Pharm Prophylaxis ordered?: No 07/02/18 1259 <Electronically signed by Noe Graves MD> Date Noe Graves MD CC: Odette Mendieta MD; Noe Graves MD Signed PATHOLOGY SPECIMEN OB Collected: 07/02/2018 Status: F Source: [place] 12:52 PM [facility] REPOSITORY Order Comment: Reason for Laboratory Test Placenta for Lab studies Send Specimen For (Specify): Studies @ [facility] Lab:Routine Time of Procedure: 1235 Date of Procedure: 07/02/18 Reason specimen being sent to pathology (Hx/complications): meconium Type of specimen: Placenta Type of procedure performed: Repeat Section TYPE CODE TESTS RESULT OUT OF RANGE REFERENCE UNITS LAB L350.1800 SEE Normal PATH. PATHOLOGY Spec. OB REPORT Result Comment: Specimen submitted to Anatomical Pathology Department for testing. Performed By: #### L350.1800 #### [facility] [address] [place], [address] PLACENTA Observed: 07/02/2018 Status: F Source: [place] 12:35 PM [facility] REPOSITORY Patient: CAROLA RUSSELL : 1995 (22/) Acct Num: [id number] Phys: Noe Graves MD Unit Num: [id number] Loc: WP [id number] Specimen: [id number] Received: 07/02/18 - 1441 Spec Type: PLACENTA TISSUES 1 TISSUES: Placenta, NOS GROSS DESCRIPTION SPECIMEN: PLACENTA / CLINICAL INFORMATION: A. Weight: 2.95 kg B. Gestational Age: 39 weeks C. Sex: Male PLACENTAL WEIGHT (POST FIXATION): 530 gm PLACENTAL DIMENSIONS: 19 x 16 x 4 cm PLACENTAL SHAPE: Usual ovoid PLACENTAL WEIGHT FOR GESTATIONAL AGE: Within 10-99th percentile MEMBRANES - Present A. Insertion: Marginal B. Site of rupture from edge: At edge of placental disc C. Color of membrane: Sunshine-greenish, mucoidy consistent with meconium staining D. Abnormalities: None UMBILICAL CORD - Present A. Color: Sunshine-mcdonough B. Insertion: Central C. Length: 33 cm D. Diameter: 1 cm E. Number of vessels: Three F. Abnormalities: None PLACENTAL DISC - Present A. Color of surface: Sunshine-mcdonough B. surface abnormalities: None C. Maternal cotyledons: Intact with minimal tears. Multiple blood clots are noted on the maternal surface weighing in aggregate 62 gm and measuring in aggregate 7 x 7 x 3 cm. D. Attached retro placental clot: No clot E. Cut surface: Dark red and spongy F. Lesions: Sections reveal a sunshine, indurated area measuring 1.5 cm in greatest dimension. G. Separate clot: Absent SECTIONS SUBMITTED: 1. Membrane roll 2. Cord, maternal end 3. Cord, end 4. Placental disc, and maternal surfaces, lesion 5. Placental disc, and maternal surfaces 6. Placental disc, and maternal surfaces SJ:shani 07/03/18 TC:2 CPT: 78813 HEADER OPERATION: Repeat section PRE-OP DIAGNOSIS: Meconium TISSUE SUBMITTED: Placenta MICROSCOPIC DESCRIPTION Slides are reviewed. MICROSCOPIC DIAGNOSIS Barragan placenta (530 gm): Umbilical cord - trivascular with early acute funisitis. Placental membranes - mild acute chorioamnionitis and mild acute deciduitis. Placental disc - organizing intraparenchymal hemorrhage, Justin-Arie change, increased intraparenchymal fibrin plaques and intervillous congestion. AM:shani 07/04/18 Signed Dhruv Parker, 07/04/18 <signature on file> Performed By: #### PPLAC #### [facility] [place], [address] CBC W/DIFF, AUTOMATED Collected: 07/02/2018 Status: F Source: [place] 10:00 AM [facility] REPOSITORY TYPE CODE TESTS RESULT OUT OF RANGE REFERENCE UNITS LAB L100.1000 4.4-11.0 K/mm3 High WBC 11.8 LAB L100.1200 4.2-5.4 M/mm3 Low RBC 3.84 LAB L100.1300 12.0-15.0 g/dl Low HGB 9.8 LAB L100.1400 37-47 % Low HCT 31.1 LAB L100.1500 81-99 fL Normal MCV 81.0 LAB L100.1600 27.0-32.0 pg Low MCH 25.5 LAB L100.1700 32-36 g/gl Low MCHC 31.5 LAB L100.1810 11.6-14.6 % High RDW CV 15.3 LAB L100.1820 35.1-43.9 fl High RDW SD 44.1 LAB L100.1900 150-450 K/mm3 Normal PLT 196 LAB L100.2000 6.2-12.0 fl Normal MPV 8.2 LAB L100.2100 47-70 % High NEUT% 71.8 LAB L100.2200 19-41 % Normal LY% 20.5 LAB L100.2300 0-10 % Normal MONO% 5.9 LAB L100.2400 0-5 % Normal EO% 1.4 LAB L100.2500 0-1 % Normal BASO% 0.1 LAB L100.2550 0.0-0.9 % Normal IM GRAN % 0.300 Result Comment: IG% - Immature Granulocytes (promyelocytes, myelocytes and metamyelocytes) > 1% indicates that a LEFT SHIFT is Present. LAB L100.2620 2.0-7.7 X10 3/uL High Absolute Neut 8.5 LAB L100.2720 0.83-4.51 X10 3/ul Normal Absolute Lymph 2.42 Performed By: #### L100.0100 #### [facility] [address] [place], [address] PROTHROMBIN TIME W/INR Collected: 07/02/2018 Status: F Source: [place] 10:00 AM [facility] REPOSITORY TYPE CODE TESTS RESULT OUT OF RANGE REFERENCE UNITS LAB L300.4150 11.7-14.9 SECONDS Normal PROTIME 13.1 LAB L300.4200 Normal INR 1.0 Performed By: #### L300.3900, L300.4310 #### [facility] [address] [place], [address] PARTIAL THROMBOPLAST Collected: 07/02/2018 Status: F Source: [place] TIME 10:00 AM [facility] REPOSITORY TYPE CODE TESTS RESULT OUT OF RANGE REFERENCE UNITS LAB L300.4310 24.1-36.2 Seconds Normal PTT 29.1 Performed By: #### L300.3900, L300.4310 #### [facility] [address] [place], [address] TYPE AND SCREEN Collected: 07/02/2018 Status: F Source: [place] 10:00 AM [facility] REPOSITORY Order Comment: Reason for Type AND Screen/Red Cells: SURGERY Surgery Date: 07/02/18 Time: 1230 Type of Surgery: TYPE CODE TESTS RESULT OUT OF RANGE REFERENCE UNITS LAB B10.0800 B Normal BLOOD TYPE GEL POSITIVE LAB B100.4000 Normal Antibody NEGATIVE Screen Performed By: #### B101.7450 #### [facility] [address] [place], [address] Observed: 06/04/2018 Status: F Source: [place] CULTURE, GROUP B 11:25 AM [facility] STREPTOCOCCUS REPOSITORY AREN Culture ORGANISM 1: Streptococcus agalactiae (B) Amount Growth 3+ Streptococcus agalactiae (B): REACTION Ampicillin $ <=0.25 S Clindamycin $$ <=0.25 R Inducable Clindamycin Resistan + Linezolid $$$$ <=2 S Vancomycin $ 0.5 S (NF) indicates non-formulary drug at [facility]. Approval by Infectious Disease Specialist required before non-formulary drugs may be ordered and/or dispensed. * CLSI guidelines does not recommend testing of cephalosporins. This interpretation is deduced from Beta-lactam/penicillin results. Performed By: #### M100.1800 #### [facility] [address] [place], [address] URINALYSIS, COMPLETE Collected: 05/18/2018 Status: F Source: [place] 7:00 PM [facility] REPOSITORY Order Comment: How was Urine Obtained? VICE PRESIDENT TO SPECIFY TYPE CODE TESTS RESULT OUT [...] Normal AMORPHOUS Performed By: #### L400.0001 #### [facility] [address] [facility] [place], [place], [address] GLUCOSE CHALLENGE GEST Collected: 04/16/2018 Status: F Source: [place] 1H 50G 2:05 PM [facility] REPOSITORY TYPE CODE TESTS RESULT OUT OF RANGE REFERENCE UNITS LAB L501.0250 70-140 mg/dL Normal GLU GEST 121 50g 1H Performed By: #### L501.0250 #### [facility] [address] [place], [address] CBC-COMPLETE BLOOD CNT Collected: 04/16/2018 Status: F Source: [place] NO DIFF 2:05 PM [facility] REPOSITORY TYPE CODE TESTS RESULT OUT OF [...] MPV 9.2 Performed By: #### L100.0500 #### [facility] [address] [place], [place], [address] URINE DRUG SCREEN Collected: 12/25/2017 Status: F Source: [place] (VISTA) 1:58 PM [facility] REPOSITORY Order Comment: List of Drugs Taken [...] NEGATIVE Performed By: #### L505.5000, L505.6240 #### [facility] [address] [facility] [place], [place], [address] NICOTINE URINE DRUG Collected: 12/25/2017 Status: F Source: [place] SCREEN 1:58 PM [facility] REPOSITORY Order Comment: List of Drugs Taken [...] metabolite of Nicotine. Performed By: #### L505.5000, L505.6260 #### [facility] [place], [address] CBC W/DIFF, AUTOMATED Collected: 12/25/2017 Status: F Source: [place] 1:58 PM [facility] REPOSITORY TYPE CODE TESTS RESULT OUT OF [...] Lymph 2.12 Performed By: #### L100.0100 #### [facility] [address] [place], [place], [address] URINALYSIS, ROUTINE Collected: 12/25/2017 Status: F Source: [place] (DIPSTICK) 1:58 PM [facility] REPOSITORY Order Comment: How was Urine Obtained? [...] High LEUK 25 ESTERASE Performed By: #### L400.2011 #### [facility] [address] [place], [address] THYROID STIM HORMONE Collected: 12/25/2017 Status: F Source: [place] (TSH) 1:58 PM [facility] REPOSITORY TYPE CODE TESTS RESULT OUT OF RANGE REFERENCE UNITS LAB L501.9520 0.358-3.74 uIU/mL Normal TSH 0.88 Performed By: #### L501.9520 #### [facility] [address] [place], [address] T AND S-NO Collected: 12/25/2017 Status: F Source: [place] CHARGE W/PNP 1:58 PM [facility] REPOSITORY Order Comment: Reason for Type AND Screen/Red Cells: Surgery? N TYPE CODE TESTS RESULT OUT OF RANGE REFERENCE UNITS LAB B10.0800 B Normal BLOOD POSITIVE TYPE GEL LAB B100.4050 Normal Ab SCREEN NEGATIVE GEL Performed By: #### B100.7550 #### [facility] [address] [place], [place], [address] RUBELLA IGG Collected: 12/25/2017 Status: F Source: [place] 1:58 PM [facility] REPOSITORY TYPE CODE TESTS RESULT OUT OF RANGE REFERENCE UNITS LAB L509.4000 IU/mL Normal Rubella IgG 73.4 Result Comment: Antibody results Interpretation of Immune Status < 5 IU/ml Presumed Non-immune 5 - < 10 IU/ml Equivocal > or = 10 IU/ml Presumed Immune Performed By: #### L509.4000, L3890.6005 #### [facility] [address] [place], [place], [address] HIV - [facility] Collected: 12/25/2017 Status: F Source: [place] 1:58 PM [facility] REPOSITORY TYPE CODE TESTS RESULT OUT OF RANGE REFERENCE UNITS LAB L3890.6005 Nonreactive Normal HIV - [facility] Non-Reactive Performed By: #### L509.4000, L3890.6005 #### [facility] [place], [place], [address] RPR Collected: 12/25/2017 Status: F Source: [place] 1:58 PM [facility] REPOSITORY TYPE CODE TESTS RESULT OUT OF REFERENCE UNITS RANGE LAB L700.5100 NONREACTIVE Normal RPR NONREACTIVE Performed By: #### L700.5100 #### [facility] [place], [place], [address] HEPATITIS B SURFACE Collected: 12/25/2017 Status: F Source: [place] AG 1:58 PM [facility] REPOSITORY TYPE CODE TESTS RESULT OUT OF RANGE REFERENCE UNITS LAB L3100.0400 Negative Normal HB Negative SURF AG Result Comment: Performed at: - [facility] [id number] Computer Aided Drafter: Mir Shaikh PhD, Phone: [phone] Performed By: #### L3100.0390, L3100.0625 #### [facility] (refer to report for specific site) refer to report for address and phone number HEPATITIS C ANTIBODIES Collected: 12/25/2017 Status: F Source: [place] 1:58 PM [facility] REPOSITORY TYPE CODE TESTS RESULT OUT OF RANGE REFERENCE UNITS LAB L3100.0650 0.0-0.9 s/co ratio Normal HEP C AB <0.1 Result Comment: Negative: < 0.8 Indeterminate: 0.8 - 0.9 Positive: > 0.9 The CDC recommends that a positive HCV antibody result be followed up with a HCV Nucleic Acid Amplification test (381943). Performed By: #### L3100.0390, L3100.0625 #### [facility] (refer to report for specific site) refer to report for address and phone number CT/NG WCH BY PCR Collected: 11/26/2017 Status: F Source: [place] 1:00 PM [facility] REPOSITORY TYPE CODE TESTS RESULT OUT OF RANGE REFERENCE UNITS LAB L8200.2100 Negative Normal Chlam Negative Trac PCR LAB L8200.2200 Negative Normal NG by Negative PCR Performed By: #### L8200.2000 #### [facility] [address] 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 of containers..01 ThinPrep Vial TYPE CODE TESTS RESULT OUT OF RANGE REFERENCE UNITS LAB L7400.0800 . Normal DIAGN Comment Result Comment: NEGATIVE FOR INTRAEPITHELIAL LESION AND MALIGNANCY. LAB L7400.0900 . Normal ADEQ Comment Result Comment: Satisfactory for evaluation. Endocervical and/or squamous metaplastic cells (endocervical component) are present. LAB L7400.1400 . Normal PERFORM Comment Result Comment: Andre Michaels, Sign Out Clerk (ASCP) LAB L7400.2575 . Normal TEST METHOD [...] no HPV testing was performed. Performed at: - [facility] [place], [place] [id number] Computer Aided Drafter: Ruma Shafer MD, Phone: [phone] Performed By: #### L7400.0350 #### [facility] (refer to report for specific site) refer to report for address and phone number OPERATIVE REPORT Observed: 08/26/2017 Status: F Source: [place] 8:08 AM [facility] REPOSITORY [facility] Medical Records Department [address] [place] [address] Operative Report 08/26/17 0751 MR#: [id number] Acct: [id number] Name: CAROLA RUSSELL Rep #: [id number] : 1995 21 From: Noe Graves MD PCP: Odette Mendieta MD Status: [facility] Y Location: [place] [address] Problem List (1) Missed with demise before 20 completed weeks of gestation Status: Chronic Report of Operation Date of Procedure: 08/26/17 Pre-Operative Diagnosis: Missed Post-Operative Diagnosis: Same Surgery/Procedure Performed:: Suction D and C Description of Surgical Findings:: Uterus 7 weeks size. No cervical lesions. Products of conception appropriate for US findings. crystallography teacher: None Type of Anesthesia:: MAC Anesthesiologist: Marcos [...] DISCHARGE INSTRUCTION Observed: 08/26/2017 Status: F Source: [place] 7:51 AM [facility] REPOSITORY [facility] Medical Records Department [address] [place] [address] Instructions for Home/Discharge Instructions 08/26/17 0749 MR#: [id number] Acct: [id number] Name: CAROLA RUSSELL Rep #: [id number] : 1995 21 From: Noe Graves MD PCP: Odette Mendieta MD Status: REG [facility] - Discharge Diagnoses Current Active Problems: missed [...] Days #14 tab PRN Reason: Severe Pain (-03/26) Ibuprofen [Motrin] 800 mg PO TID PRN [...] 08/26/2017 Status: F Source: [place] 7:30 AM [facility] REPOSITORY Patient: CAROLA RUSSELL : 1995 (21/F) Acct Num: [id number] Phys: Noe Graves MD Unit Num: [id number] Loc: [facility] Specimen: [id number] Received: 08/26/17824 Spec Type: PROD CONC TISSUES TISSUES: Product of conception, NOS GROSS DESCRIPTION Received in fixative is one container labeled with the patient's name and designated products of conception. The specimen consists of multiple fragments of pink hemorrhagic soft tissue that in aggregate measure 6 x 5.5 x 2.5 cm. tissue is not identified. Machine Brush Maker tissue is submitted in two cassettes. / SJ:shani 08/26/17 TC:5 CPT: 54653 HEADER OPERATION: dilation and curettage, suction PRE-OP DIAGNOSIS: Missed TISSUE SUBMITTED: Products of conception MICROSCOPIC DESCRIPTION Slides are reviewed. MICROSCOPIC DIAGNOSIS Products of conception: [place], gestational endometrium and immature chorionic villi (products of conception). SJ:shani 08/27/17 Signed Elpidio Mock 08/27/17 <signature on file> Performed By: #### PPOC #### [facility] [address] [place], [place], [id number] CBC-COMPLETE BLOOD CNT Collected: 08/26/2017 Status: F Source: [place] NO DIFF 5:35 AM [facility] REPOSITORY TYPE CODE TESTS RESULT OUT OF [...] Performed By: #### L100.0500, L300.3900, L300.4310 #### [facility] [address] [place], [place], [address] PROTHROMBIN TIME W/INR Collected: 08/26/2017 Status: F Source: [place] 5:35 AM [facility] REPOSITORY TYPE CODE TESTS RESULT OUT OF RANGE REFERENCE UNITS LAB L300.4150 11.7-14.9 SECONDS Normal PROTIME 13.9 LAB L300.4200 Normal INR 1.1 Performed By: #### L100.0500, L300.3900, L300.4310 #### [facility] [address] [place], [address] PARTIAL THROMBOPLAST Collected: 08/26/2017 Status: F Source: [place] TIME 5:35 AM [facility] REPOSITORY TYPE CODE TESTS RESULT OUT OF RANGE REFERENCE UNITS LAB L300.4310 24.1-36.2 Seconds Normal PTT 32.1 Performed By: #### L100.0500, L300.3900, L300.4310 #### [facility] [address] [place], [address] TYPE AND SCREEN Collected: 08/26/2017 Status: F Source: [place] 5:35 AM [facility] REPOSITORY Order Comment: Reason for Type AND Screen/Red Cells: SURGERY TYPE CODE TESTS RESULT OUT OF RANGE REFERENCE UNITS LAB B10.0800 B Normal BLOOD TYPE GEL POSITIVE LAB B100.4000 Normal Antibody NEGATIVE Screen Performed By: #### B101.7450 #### [facility] [address] [place], [address] CT/NG WCH BY PCR Collected: 07/25/2017 Status: F Source: [place] 2:00 PM [facility] REPOSITORY TYPE CODE TESTS RESULT OUT OF RANGE REFERENCE UNITS LAB L8200.2100 Negative Normal Chlam Negative Trac PCR LAB L8200.2200 Negative Normal NG by Negative PCR Performed By: #### L8200.2000 #### [facility] [address] [place], [address] EMERGENCY DEPARTMENT Observed: 07/13/2017 Status: F Source: [place] SUMMARY 7:22 AM [facility] REPOSITORY [facility] Medical Records Department [address] [place] [address] Emergency Department Summary 07/13/17 0717 MR#: [id number] Acct: [id number] Name: CAROLA RUSSELL Rep #: [id number] : 1995 21 From: Joaquin Maldonado DO [...] Facial contusion] This note was generated with [employer] dictation software. It may contain incorrect words, [...] your Primary Care Provider. Call [facility] ([phone]) or report to the closest Emergency Room. Call 911 if necessary. 07/13/17721 <Electronically signed by Joaquin Maldonado DO> Date Joaquin Maldonado DO Cosigner Signature (If Indicated): Date CC: Odette Mendieta MD DISCHARGE INSTRUCTION Observed: 07/13/2017 Status: F Source: [place] 7:22 AM [facility] REPOSITORY [facility] Medical Records Department [address] [place] [address] Discharge Instruction 07/13/17721 MR#: [id number] Acct: [id number] Name: CAROLA RUSSELL Rep #: [id number] : 1995 21 From: Joaquin Maldonado DO [...] your Primary Care Provider. Call [facility] ([phone]) or report to the closest Emergency Room. Call 911 if necessary. 07/13/17721 <Electronically signed by Joaquin Maldonado DO> Date Joaquin Maldonado DO Cosigner Signature (If Indicated): Date CC: Odette Mendieta MD ALLERGIES ALLERGIES DATE TYPE / CODE NAME / CODE REACTION SEVERITY SOURCE 08/22/2017 Drug No Known Unknown [facility] Allergy/4160 Allergies/F00 Hospital 72021(SNOMED 7409548(RXNOR Repository CT) M) ENCOUNTERS ENCOUNTERS ADMIT/DISCHARGE ACCOUNT ADMITTING ENCOUNTER LOCATION SOURCE NUMBER CLASS 07/02/2018/ [id number] Noe Graves Inpatient [place] 9 4 Encounter [facility] ing:WPRoom: Repository VP550Ads: 1 07/02/2018 [id number] Noe Graves Ambulatory [place] 9 [facility] ing:WP Repository 06/04/2018 [id number] Ambulatory [place] 9 [facility] ing:LABSPEC Repository 05/18/2018/ [id number] Ambulatory [place] 8 9 [facility] ing:WPOUTRoom Repository : WP015 04/16/2018 [id number] Ambulatory [place] 0 [facility] ing:WOBLAB Repository 12/25/2017 [id number] Ambulatory [place] 4 [facility] ing:WOBLAB Repository 11/26/2017 [id number] Ambulatory [place] 8 [facility] ing:LABSPEC Repository 08/26/2017/ [id number] Ambulatory [place] 8 6 [facility] ing:SDC Repository 07/25/2017 [id number] Ambulatory [place] 7 [facility] ing:LABSPEC Repository 07/13/2017/ [id number] Emergency [place] 8 4 [facility] ing:ED Repository PAYERS PAYERS ENCOUNTER GUARANTOR PAYER SUBSCRIBER SOURCE 07/02/2018 CAROLA Bautista Primary CAROLA ONEAL ERNIE Insurance:[facility] / NHRMCDEE: [facility] NGA acosta Number: [id number] [id number] Repository [address]Hei: ([phone]) Date:2018-05-13P O [phone] (HP) [address]ATTN: [place] [address]KA: 07/02/2018 Secondary NOT GIVENUNK Debbie Insurance:SELF PAY [facility] Number: Effective Repository Date:2018-05-13 07/02/2018 CAROLA N Primary CAROLA N [place] [id number] ERNIE Insurance:CARESOURCEP LAMBDOB: Community DRAPT olicy Number: [id number] [id number] Repository [address]Nhx: ([phone]) Date:2018-07-01P O [phone] () [address]ATTN: [place] [address]NR: 07/02/2018 Secondary NOT GIVENUNK Debbie Insurance:SELF PAY [facility] Number: Effective Repository Date:2018-07-01 06/04/2018 CAROLA N Primary CAROLA N [place] [id number] ERNIE Insurance:CARESOURCEP LAMBDOB: Community DRApt olicy Number: [id number] [id number] Repository [address]Aiz: ([phone]) Date:2018-06-04P O [phone] () [address]ATTN: [place] [address]MD: 06/04/2018 Secondary NOT GIVENUNK Debbie Insurance:SELF PAY [facility] Number: Effective Repository Date:2018-06-04 05/18/2018 CAROLA N Primary CAROLA N [place] [id number] ERNIE Insurance:CARESOURCEP LAMBDOB: Community DRApt olicy Number: [id number] [id number] Repository [address]Fuw: ([phone]) Date:2018-05-18P O [phone] () [address]ATTN: [place] [address]IC: 05/18/2018 Secondary NOT GIVENUNK Debbie Insurance:SELF PAY [facility] Number: Effective Repository Date:2018-05-18 04/16/2018 Carola N Primary Carola N [place] [id number] Ernie Insurance:CARESOURCEP LambDOB: [facility] DrKarthik acosta Number: [id number] [id number] Repository [address]Mmc: ([phone]) Date:2018-04-16 O [phone] () [address]ATTN: [place] [address]HZ: 04/16/2018 Secondary NOT GIVENUNK [place] Insurance:SELF PAY [facility] Number: Effective Repository Date:2018-04-16 12/25/2017 Carola N Primary Carola N Debbie [id number] Ernie Insurance:CARESOURCEP LambDOB: [facility] Number: [id number] [id number] Repository [address]Lxi: ([phone]) Date:2017-12-25P O [phone] () [address]ATTN: [place] [address]BZ: 12/25/2017 Secondary NOT GIVENUNK Debbie Insurance:SELF PAY [facility] Number: Effective Repository Date:2017-12-25 11/26/2017 Carola N Primary Carola N [place] [id number] Ernie Insurance:CARESOURCEP LambDOB: [facility] Nga dumont Number: [id number] [id number] Repository [address]Wfj: ([phone]) Date:2017-11-26 O [phone] () [address]ATTN: [place] [address]RS: 11/26/2017 Secondary NOT GIVENUNK [place] Insurance:SELF PAY [facility] Number: Effective Repository Date:2017-11-26 08/26/2017 Carola N Primary Carola N [place] [id number] Ernie Insurance:CARESOURCEP LambDOB: [facility] Nga [facility] Number: [id number] [id number] Repository [address]Rlr: ([phone]) Date:2017-08-22P O [phone] (HP) [address]ATTN: [place] [address]JH: 08/26/2017 Secondary NOT GIVENUNK De[place] Insurance:SELF PAY [facility] Number: Effective Repository Date:2017-08-22 07/25/2017 Carola Bautista Primary Carola N [place] [id number] Ernie Insurance:CARESOURCEP LambDOB: Community DrApt olicy Number: [id number] [id number] Repository [address]Spu: ([phone]) Date:2017-07-25P O [phone] () [address]ATTN: [place] [address]RH: 07/25/2017 Secondary NOT GIVENUNK [place] Insurance:SELF PAY [facility] Number: Effective Repository Date:2017-07-25 07/13/2017 Carola Bautista Primary Carola N De[place] [id number] Ernie Insurance:CARESOURCEP LambDOB: [facility] Number: [id number] [id number] Repository [address]Hjq: ([phone]) Date:2017-07-13P O [phone] () [address]ATTN: [place] [address]HE: 07/13/2017 Secondary NOT GIVENUNK [place] Insurance:SELF PAY [facility] Number: Effective Repository Date:2017-07-13
== END 2018-07-04 13:20 | disposition home or self-care (01) | DRG 540 ==
PROVIDERS: Admitting Provider Obstetrics & Gynecology; Family Provider Internal Medicine; PCP Internal Medicine; Referring Provider Obstetrics & Gynecology; Visit Provider Obstetrics & Gynecology
PROC: 10D00Z1 Extraction of Products of Conception, Low, Open Approach (ICD-10-PCS; CPT 59514; principal; 2018-07-02 11:45)
DX: O34.211 Maternal care for low transverse scar from previous cesarean delivery (principal); O77.0 Labor and delivery complicated by meconium in amniotic fluid; O69.2XX0 Labor and delivery complicated by other cord entanglement, with compression, not applicable or unspecified; Z3A.39 39 weeks gestation of pregnancy; Z37.0 Single live birth
CPT/HCPCS: 85025; 85027; 85610; 85730; 86850; 86900; 88307; 99218; J7120; A4216; G0378; J2405

== ENCOUNTER → 2018-08-22 14:27 | Outpatient (CLI) | payer MEDICAID, SELFPAY ==
[2018-07-02 10:22] VITALS: BMI 38.5
[2018-08-22 17:55] LABS: Chlamydia Trachomatis by PCR Negative (Negative); Neisserai gonorrhoeae by PCR Negative (Negative); Probe Check PASS; Sample Adequacy Control PASS; Specimen Processing Control PASS
== END ==
PROVIDERS: Family Provider Internal Medicine; PCP Internal Medicine; Referring Provider Obstetrics & Gynecology; Visit Provider Obstetrics & Gynecology
DX: Z11.3 Encounter for screening for infections with a predominantly sexual mode of transmission (principal)
CPT/HCPCS: 87491; 87591

== ENCOUNTER 2022-10-21 13:59 | Emergency (ER) | payer MEDICAID, SELFPAY ==
[2022-10-21 13:59] VITALS: BP 134/87; PULSE 84; RESP 18; TEMP 35.8; O2SAT 100; BMI 45.8
--- NOTE | 2022-10-21 14:17 | EDS_ITS ---
HPI <JOSTIN Kitchen - Last Filed: 10/21/22 14:25> History of Present Illness Chief Complaint: Wound Narrative Narrative: Patient is a 26-year-old female with no significant medical history presents to the emergency department with complaints of infection to the distal tip of her right ring finger. Patient states that this developed 2 to 3 days ago. She noticed slight drainage, it is more red and swollen. She states it hurts with palpation. PFSH <JOSTIN Kitchen - Last Filed: 10/21/22 14:25> PFSH Home Medications tfxjartjpz-yeoenxfncatbf-xdgkdiqn 50 mg-325 mg-40 mg tablet 2 tab PO Q4H PRN PRN headaches 05/18/18 [History Last Taken 1 Day Ago ~07/01/18 2 tablet] ferrous sulfate 325 mg (65 mg iron) tablet (Iron (ferrous sulfate)) 325 mg PO BID anemia 05/18/18 [History Last Taken 1 Day Ago ~07/01/18 325 mg] vits,calcium no.78-iron fumarate-folic acid 29 mg-1 mg tablet (Prenatabs FA) 1 tab PO DAILY 05/18/18 [History Last Taken 1 Day Ago ~07/01/18 1 tablet] Zofran 4 mg PO Q6H PRN PRN Nausea 07/02/18 [History Last Taken 1 Week Ago ~06/25/18 4 mg] ibuprofen 600 mg tablet 600 mg PO 4X/DAY mild to moderate pain #30 tabs 07/02/18 [Rx Last Taken Unknown] cephalexin 500 mg capsule 500 mg PO Q6 7 days #28 CAPSULES 10/21/22 [Rx Last Taken Unknown] Allergy/AdvReac Type Severity Reaction Status Date / Time No Known Allergies Allergy Verified 10/21/22 14:01 Social History Smoking Status: Never smoker ROS <JOSTIN Kitchen - Last Filed: 10/21/22 14:25> ROS ED ROS Narrative Constitutional: Negative for fever, chills, weight loss, weakness Eyes: Negative for vision loss, vision change, double vision ENT: Negative for any sore throat, ear pain, congestion Cardiovascular: Negative for any chest pain, tightness, palpitations Respiratory: Negative for any cough, sputum production, hemoptysis, dyspnea, dyspnea on exertion, orthopnea Gastrointestinal: Negative for any abdominal pain, nausea, vomiting, diarrhea, constipation, blood in stool, blood in vomit : Negative for any urinary frequency, dysuria, retention, blood in urine Muscle skeletal: Negative for any muscle joint pain, stiffness, myalgias, arthralgias, neck pain, back pain. Positive for right fourth digit pain and swelling Neurological: Negative for any headache, syncope, numbness or tingling, dizziness Skin: Negative for any rashes, lumps, itching, abrasions, lacerations Psychiatric: Negative for any depression, anxiety, stress, suicidal ideation, homicidal ideation Hematologic: Negative for any easy bruising, excessive bruising, easy bleeding Allergies: Negative for any eczema, hives, rash EXAM <JOSTIN Kitchen - Last Filed: 10/21/22 14:25> Physical Exam Narrative Exam Narrative: Vital signs reviewed. Extremities: No peripheral edema, no signs of gross trauma or deformity. Active full range of motion of all extremities. Patient has some erythema, slight drainage to the distal tip of the right fourth finger, this is consistent with a paronychia. No evidence of deep tissue infection. Neuro: Cranial nerves II through XII intact, no focal neurological deficits. Skin: Clean dry and intact with no rash, purpura, petechiae, vesicles or pustu les. Backs/flank: No CVA tenderness, no midline spinal tenderness, no deformity. Psych: Normal mood and affect. No SI, HI or acute psychosis. Const Vital Signs: 10/21/22 13:59 Temperature 96.4 F L Temperature Source Temporal Pulse Rate 84 Respiratory Rate 18 Blood Pressure 134/87 H Blood Pressure Mean 102 Pulse Ox 100 Oxygen Delivery Method Room Air <Dr. Mikhail Melgoza, DO - Last Filed: 10/21/22 14:41> Physical Exam Const Vital Signs: 10/21/22 13:59 Temperature 96.4 F L Temperature Source Temporal Pulse Rate 84 Respiratory Rate 18 Blood Pressure 134/87 H Blood Pressure Mean 102 Pulse Ox 100 Oxygen Delivery Method Room Air MDM <JOSTIN Kitchen - Last Filed: 10/21/22 14:25> [facility] Treatment and Re-Evaluation :: Patient appears well, patient appears nontoxic, vital signs are stable. Patient presents the emergency department with complaints of redness, swelling to the distal tip of the fourth right finger. This is consistent with a paronychia, there is no evidence suspect any deep tissue infection. Patient has no comorbidities. Consider an x-ray of the right hand however I do not believe that this is necessary at this time. Patient will be started on Keflex. I did clean the area with alcohol, I did make a slight incision at the nailbed line, this was to open up for any drainage. Patient tolerated well. Patient would continue to take Keflex 4 times a day for 7 days. She was given strict return precaution. She is happy the plan of care stable for discharge. <Dr. Mikhail Melgoza, DO - Last Filed: 10/21/22 14:41> [facility] MDM Narrative Medical decision making narrative: I have personally performed a face to face assessment of the patient and have reviewed the JACKSON Note. I performed a substantive portion of the visit including all aspects of the following. My guerra findings include: History: Patient presents with a paronychia to her right ring finger. Patient states there was a small amount of purulent drainage from this area. Patient states the pain has been getting progressively worse. Patient denies any fevers or chills. Patient denies any redness or swelling over her middle or proximal phalanges. Patient denies any streaking of the erythema up her arm. Exam: Vital signs are stable. Patient is afebrile. Patient is in no acute distress. Skin is warm and dry. There is some erythema and tenderness over the ulnar aspect of the nail margin of the right ring finger. There is mild discharge. There is minimal fluctuance. Sensation was intact to light touch in all digits. Capillary refill was less than 2 seconds in all digits. There is good range of motion the MP, PIP, and DIP joints of the right ring finger. Medical Decision Making: Patient was advised that this is most likely a paronychia. A #11 blade scalpel was used to make a small incision along the nail margin. There was some purulent drainage expressed. Patient felt better after this. Patient was given a dose of Keflex. Patient was given a prescription for Keflex. Patient was instructed to follow-up with her primary care physician in 5 to 7 days. Patient understood and was agreeable with plan. All questions were answered. Discharge Plan Triage Chief Complaint: Wound ED Midlevel Provider: Doc Prather ED Provider: Mikhail Melgoza Dx/Rx/DC Orders Clinical Impression: Paronychia Instructions: ED Paronychia of the Finger or Toe Prescriptions: New cephalexin 500 mg capsule 500 mg PO Q6 7 Days Qty: 28 0RF No Action Zofran 4 mg PO Q6H PRN PRN (Reason: Nausea) ibuprofen 600 MG tablet 600 mg PO 4X/DAY Qty: 30 1RF ferrous sulfate [Iron (ferrous sulfate)] 325 MG tablet 325 mg PO BID vit,ovfg68-nhhs-ldvmn [Prenatabs FA] 1 TABLET tablet 1 tab PO DAILY lxatxkkakz-xzhxisxbmurki-qhyz 1 TABLET tablet 2 tab PO Q4H PRN PRN (Reason: headaches ) Primary Care Provider: Odette Mendieta Referrals: Odette Mendieta MD [Primary Care Provider] - Activity Restrictions/Additional Instructions: Take antibiotics until finished. Use warm soaks. Disposition Disposition: Home, Self Care
[2022-10-21] MEDS: Cephalexin 250 MG Capsule 500 MG PO (14:41)
== END 2022-10-21 14:46 | disposition home or self-care (01) ==
LOC: ED 14:38
PROVIDERS: Emergency Provider Emergency Medicine; PCP Internal Medicine; Visit Provider Emergency Medicine
DX: L03.011 Cellulitis of right finger (principal)
CPT/HCPCS: 99283

== ENCOUNTER → 2024-10-22 | Outpatient (CLI) | payer MEDICAID, SELFPAY ==
[2024-10-22 11:39] LABS: Anion Gap 10 (5-15); BUN 11 mg/dL (4-19); Carbon Dioxide 22.8 mmol/L (21.0-32.0); Chloride 105 mmol/L (98-108); Cholesterol 172 mg/dL (<=200); EST Glomerular Filtration Rate 103 (>60); Glucose 118 mg/dL (70-99); High Density Lipoprotein 35 mg/dL; Low Density Lipoprotein Calc. 112 mg/dL; Potassium 5.1 mmol/L (3.3-5.1); Sodium Level 138 mmol/L (133-145); Triglycerides 128 mg/dL; Very Low Density Lipoprotein 26 mg/dL (5-40); cholesterol:hdl ratio screen 4.97
== END | disposition home or self-care (01) ==
PROVIDERS: PCP Family Medicine; Referring Provider Family Medicine; Visit Provider Family Medicine
DX: E66.9 Obesity, unspecified (principal)
CPT/HCPCS: 36415; 80048; 80061; 84443